=== PATIENT | female | born 1935 | race Caucasian/White ===

== ENCOUNTER 2017-12-03 09:39 | Inpatient (IN) | payer MEDICARE, BC ==
[~2017-12-03] VITALS: Ht 154.9 cm; Wt 54.4 kg
--- NOTE | ~2017-12-03 | DS ---
PATIENT:DON ENRIQUEZ :39 MEDICAL RECORD: [id number] DISCHARGE SUMMARY ADMISSION DATE: 12/03/17 DISCHARGE DATE: 12/06/17 DATE OF ADMISSION: 12/03/2017 DATE OF DISCHARGE: 12/06/2017 ADMITTING DIAGNOSES: Urinary tract infection, dehydration, dementia, decubiti of buttocks and heel. DISCHARGE DIAGNOSES: Intracranial hemorrhage, urinary tract infection, dementia, dehydration, hypertension, sinus tachycardia, history of atrial fibrillation, depression, decubiti of buttocks and heel, seizures. HISTORY OF PRESENT ILLNESS AND HOSPITAL COURSE: An 82-year-old white female with known dementia that presents with poor oral intake for the last 48-72 hours with UTI. She is admitted. Cultures were obtained. She was started on IV fluids, she had received some antibiotics at home. She had already received some antibiotics at home, so her cultures here did not grow out anything. Blood cultures were negative. On 12/04/2017, she started to develop some neurological changes and CT head was performed, which reveals a large intracranial bleed to the left temporal area. She does have an almost 4 mm shift. Discussion with family including daughters that they wish to proceed with comfort care. Hospice is consulted and she is going be discharged back to her residence with hospice. She did develop some seizures. DISCHARGE MEDICATIONS: Going to be Duragesic patch 12.5 q. 72 hours, Keppra 250 IV piggyback q. 12 hours, Decadron IV 6 mg q. 6 hours plus meds per hospice protocol. She will require transfer by ambulance due to her immobility and current neurologic state. TRANSINT:[id number] Voice Confirmation ID: [id number] DOCUMENT ID: [id number] FIDEL DUNHAM DO at 1743 CC: [id number] DICTATION DATE: 12/06/17 0846 VACUUM DRIER TENDER: 12/06/17 1144 DIS IN 12/06/17 [id number] [place] [address]
--- NOTE | ~2017-12-03 | HP ---
PATIENT: DON ENRIQUEZ MEDICAL RECORD: [id number] ACCOUNT: [id number] LOCATION:[id number] : 39 ADMISSION DATE: 12/03/17 PCP: FIDEL DUNHAM DO HISTORY AND PHYSICAL EXAMINATION HISTORY OF PRESENT ILLNESS: Ms. Enriquez is an 82-year-old white female who has had decreased oral intake for the last 48 hours. She has a history of recurrent UTIs. She has a history of dementia. She has been more confused. Clinically, she is dehydrated and some questionable fever at home. She is admitted for IV fluids and possible a septic workup. PAST MEDICAL HISTORY: Significant for dementia, probably Lewy body, atrial fibrillation, type 2 diabetes, recent hip fracture, vitamin D deficiency, some skin breakdown on her buttocks and left heel and depression. PAST SURGICAL HISTORY: Previous surgeries include recent hip surgery. She has had hysterectomy. ALLERGIES OR INTOLERANCES: INCLUDE AMOXICILLIN, AUGMENTIN, CIPRO, AND PAROXETINE. HOME MEDICATIONS: Include Seroquel 25 mg b.i.d., Dilacor 120 daily, sertraline 50 mg 1 to 1-1/2 tablets daily, Nystatin powder b.i.d., memantine 10 mg twice a day, flecainide 100 mg twice a day, metformin 500 mg at bedtime, vitamin D 2000 units a day, tramadol p.r.n., Tylenol p.r.n., ranitidine 150 mg twice a day, docusate p.r.n., some calcium, and a baby aspirin a day. FAMILY HISTORY: Noncontributory. SOCIAL HISTORY: The patient is . She is currently residing in a private home for assisted living. She has never smoked and does not drink. REVIEW OF SYSTEMS: Significant for increasing confusion, unable to get much history due to her current mentation. PHYSICAL EXAMINATION: GENERAL: She is currently somewhat incoherent. She is constantly crying. She appears in mild distress. She is cachectic in appearance. HEENT: Sclerae nonicteric. Mucous membranes are very dry. HEART: Slightly tachycardic in the 110s. LUNGS: Clear. ABDOMEN: Soft. EXTREMITIES: She has got some area of breakdown on the right buttock and on the left heel, a healing incision on the left hip. IMPRESSION: 1. Dehydration. 2. Urinary tract infection. 3. Chronic dementia. 4. Diabetes. 5. Atrial fibrillation, currently in sinus. 6. Depression. 7. Decubiti of the buttocks and left heel. PLAN: Admit. IV fluids. Cultures, IV antibiotics, wound care. See orders for HISTORY AND PHYSICAL [id number] DON ENRIQUEZ plan. TRANSINT:[id number] Voice Confirmation ID: [id number] DOCUMENT ID: [id number] FIDEL DUNHAM DO at 1441 CC: [id number] DICTATION DATE: 12/03/17 184 GLOST PLACER: 12/03/17 213 ADM IN [facility] [address] [id number]
[2017-12-03 10:37] VITALS: BP 132/78; BMI 22.7
[2017-12-03] MEDS ORDERED: SEROQUEL25 MG PO (11:42)
[2017-12-03] MEDS ORDERED: ZOLOFT50 MG PO (11:45)
[2017-12-03] MEDS ORDERED: VITAMIN D31000 UNIT PO (11:46)
[2017-12-03 13:28] VITALS: BP 152/87
[2017-12-03 13:30] LABS: BASOPHILS 0.1 % (0-2); EOSINOPHILS 0.6 % (0-7); HEMATOCRIT 44.1 % (36.0-48.0); HEMOGLOBIN 14.5 g/dL (12-16); IMMATURE GRANULOCYTES 0.2 % (0-5); MCH 29.8 pg (26.0-34.0); MCHC 32.9 g/dL (31.0-37.0); MCV 90.7 fL (80.0-100.0); MEAN PLATELET VOLUME 10.3 fL (7.4-10.4); MONOCYTES 6.3 % (2-11); NEUTROPHILS 77.8 % (40-80); PLATELET COUNT 283 10x3/uL (130-400); RBC 4.86 10x6/uL (4.00-5.40); RDW 12.7 % (11.5-14.5); WBC 10.4 10x3/uL (4.8-10.8)
[2017-12-03 13:48] LABS: ALBUMIN 3.1 g/dL (3.4-5.0); ANION GAP 15.9 mmol/L (8-16); BILIRUBIN - TOTAL 0.53 mg/dL (0.2-1.3); CARBON DIOXIDE 27.4 mmol/L (21.0-32.0); CREATININE - SERUM 0.9 mg/dL (0.6-1.3); POTASSIUM - SERUM 3.3 mmol/L (3.5-5.1); PROTEIN - SERUM 7.2 g/dL (6.4-8.2)
[2017-12-03 17:48] LABS: APPEARANCE CLOUDY (CLEAR); COLOR YELLOW (YELLOW); GLUCOSE NEGATIVE (NEGATIVE); NITRITE POSITIVE (NEGATIVE); PROTEIN 1+ mg/dL (NEGATIVE); SPECIFIC GRAVITY 1.015 (1.005-1.020)
[2017-12-03 17:49] LABS: AMORPHOUS SEDIMENT <1+ /lpf (NONE SEEN); BACTERIA FEW /hpf (NONE SEEN); BILIRUBIN NEGATIVE (NEGATIVE); EPITHELIAL CELLS RARE /hpf (0-5); KETONE MODERATE mg/dL (NEGATIVE); RED CELLS - URINE 0-5 /hpf (0-5); UROBILINOGEN NORMAL (NORMAL); WHITE CELLS - URINE >50 /hpf (0-5)
[2017-12-03 17:53] VITALS: BP 137/85
[2017-12-03 21:24] VITALS: BP 143/96
[2017-12-04 04:52] LABS: BASOPHILS 0.2 % (0-2); EOSINOPHILS 0.9 % (0-7); HEMATOCRIT 40.6 % (36.0-48.0); HEMOGLOBIN 13.8 g/dL (12-16); IMMATURE GRANULOCYTES 0.1 % (0-5); LYMPHOCYTES 15.6 % (15-50); MCH 30.1 pg (26.0-34.0); MEAN PLATELET VOLUME 10.3 fL (7.4-10.4); MONOCYTES 7.5 % (2-11); NEUTROPHILS 75.7 % (40-80); PLATELET COUNT 281 10x3/uL (130-400); RBC 4.59 10x6/uL (4.00-5.40); RDW 12.9 % (11.5-14.5)
[2017-12-04 04:55] LABS: MCV 88.5 fL (80.0-100.0)
[2017-12-04 05:09] LABS: ALBUMIN 2.8 g/dL (3.4-5.0); ALKALINE PHOSPHATASE 112 U/L (46-116); ALT (SGPT) 6 U/L (10-68); BILIRUBIN - TOTAL 0.52 mg/dL (0.2-1.3); CALCIUM 8.6 mg/dL (8.5-10.1); CARBON DIOXIDE 25.4 mmol/L (21.0-32.0); CHLORIDE - SERUM 99 mmol/L (98-107); PROTEIN - SERUM 6.5 g/dL (6.4-8.2); SODIUM 134 mmol/L (136-145); UREA NITROGEN 6 mg/dL (7-18)
[2017-12-04 05:12] LABS: CALC OSMOLALITY 272 mosm/kg (275-300); CREATININE - SERUM 0.6 mg/dL (0.6-1.3); GLUCOSE 229 mg/dL (74-106); POTASSIUM - SERUM 4.1 mmol/L (3.5-5.1); eGFR NON AFRICAN AMERICAN > 90 mL/min (90-120)
[2017-12-04 05:18] VITALS: BP 142/82
[2017-12-04 08:57] VITALS: BP 133/89
[2017-12-04 12:30] VITALS: BP 128/75
[2017-12-04 14:02] VITALS: Ht 154.9 cm; Wt 54.4 kg
[2017-12-04 16:29] VITALS: BP 132/77
[2017-12-04 21:00] VITALS: BP 134/84
[2017-12-05 05:10] VITALS: BP 123/67
[2017-12-05 06:02] LABS: BASOPHILS 0.1 % (0-2); EOSINOPHILS 0.3 % (0-7); HEMATOCRIT 37.1 % (36.0-48.0); HEMOGLOBIN 12.7 g/dL (12-16); IMMATURE GRANULOCYTES 0.3 % (0-5); LYMPHOCYTES 10.2 % (15-50); MCH 29.8 pg (26.0-34.0); MCHC 34.2 g/dL (31.0-37.0); MCV 87.1 fL (80.0-100.0); MEAN PLATELET VOLUME 10.6 fL (7.4-10.4); MONOCYTES 7.9 % (2-11); NEUTROPHILS 81.2 % (40-80); PLATELET COUNT 233 10x3/uL (130-400); RBC 4.26 10x6/uL (4.00-5.40); RDW 12.8 % (11.5-14.5); WBC 8.6 10x3/uL (4.8-10.8)
[2017-12-05 06:51] LABS: ALBUMIN 2.6 g/dL (3.4-5.0); ALKALINE PHOSPHATASE 99 U/L (46-116); ALT (SGPT) 7 U/L (10-68); BILIRUBIN - TOTAL 0.45 mg/dL (0.2-1.3); CALC OSMOLALITY 262 mosm/kg (275-300); CALCIUM 8.6 mg/dL (8.5-10.1); CHLORIDE - SERUM 97 mmol/L (98-107); CREATININE - SERUM 0.6 mg/dL (0.6-1.3); GLUCOSE 188 mg/dL (74-106); POTASSIUM - SERUM 3.8 mmol/L (3.5-5.1); PROTEIN - SERUM 6.1 g/dL (6.4-8.2); SODIUM 130 mmol/L (136-145); UREA NITROGEN 5 mg/dL (7-18); eGFR NON AFRICAN AMERICAN > 90 mL/min (90-120)
[2017-12-05 09:40] VITALS: BP 137/83
[2017-12-05 16:36] VITALS: BP 163/94
[2017-12-05 20:05] VITALS: BP 153/96
[2017-12-06 05:25] VITALS: BP 112/70
[2017-12-06 05:56] LABS: BASOPHILS 0 % (0-2); EOSINOPHILS 0 % (0-7); HEMATOCRIT 37.3 % (36.0-48.0); HEMOGLOBIN 12.5 g/dL (12-16); IMMATURE GRANULOCYTES 0.1 % (0-5); LYMPHOCYTES 6.1 % (15-50); MCH 29.3 pg (26.0-34.0); MCHC 33.5 g/dL (31.0-37.0); MCV 87.6 fL (80.0-100.0); MEAN PLATELET VOLUME 10.7 fL (7.4-10.4); MONOCYTES 2.8 % (2-11); PLATELET COUNT 256 10x3/uL (130-400); RBC 4.26 10x6/uL (4.00-5.40); RDW 12.9 % (11.5-14.5); WBC 7.1 10x3/uL (4.8-10.8)
[2017-12-06 06:37] LABS: ALBUMIN 2.5 g/dL (3.4-5.0); ALKALINE PHOSPHATASE 98 U/L (46-116); ALT (SGPT) 7 U/L (10-68); BILIRUBIN - TOTAL 0.32 mg/dL (0.2-1.3); CALCIUM 8.6 mg/dL (8.5-10.1); CARBON DIOXIDE 23.6 mmol/L (21.0-32.0); CHLORIDE - SERUM 99 mmol/L (98-107); CREATININE - SERUM 0.6 mg/dL (0.6-1.3); POTASSIUM - SERUM 3.7 mmol/L (3.5-5.1); PROTEIN - SERUM 6.2 g/dL (6.4-8.2); SODIUM 133 mmol/L (136-145); eGFR NON AFRICAN AMERICAN > 90 mL/min (90-120)
[2017-12-06 06:38] LABS: CALC OSMOLALITY 275 mosm/kg (275-300); GLUCOSE 288 mg/dL (74-106); UREA NITROGEN 10 mg/dL (7-18)
[2017-12-06 08:24] VITALS: BP 122/79
[2017-12-06] MEDS ORDERED: Decadron INJ IV (08:43)
[2017-12-06] MEDS ORDERED: Keppra Premix IV (08:43)
[2017-12-06] MEDS ORDERED: Duragesic TRANSDERM (08:43)
== END 2017-12-06 12:26 | disposition home health service (06) | DRG 689 ==
LOC: D.MS 09:39 → D.ER 09:39 → EDSTATUS 10:03 → D.MS 12-06 12:26
PROVIDERS: Emergency Medicine; Family Medicine
DX: N39.0 Urinary tract infection, site not specified (principal); G93.41 Metabolic encephalopathy; R53.2 Functional quadriplegia; I61.1 Nontraumatic intracerebral hemorrhage in hemisphere, cortical; E86.0 Dehydration; G30.9 Alzheimer's disease, unspecified; F02.80 Dementia in other diseases classified elsewhere, unspecified severity, without behavioral disturbance, psychotic disturbance, mood disturbance, and anxiety; I48.91 Unspecified atrial fibrillation; E11.65 Type 2 diabetes mellitus with hyperglycemia; Z79.84 Long term (current) use of oral hypoglycemic drugs; E55.9 Vitamin D deficiency, unspecified; L89.311 Pressure ulcer of right buttock, stage 1; L89.621 Pressure ulcer of left heel, stage 1; K21.9 Gastro-esophageal reflux disease without esophagitis; E87.6 Hypokalemia